=== PATIENT | female | born 1960 | race American Indian/Alaskan Native ===

== ENCOUNTER 2019-02-14 12:31 | Emergency (ER) | payer OTHER ==
[2019-02-14 12:40] VITALS: BP 161/75
--- NOTE | 2019-02-14 12:48 | Event Note ---
ED Screening Note Date of service: 02/14/19 Time: 12:44 ED Screening Note: This is a 58 y.o. F. that presents to the ER with left shoulder and elbow pain for 1 week. Patient reports tingling in feet started a few days ago. Taking ibuprofen with minimal relief. PMH hypothyroidism, OA, HTN, depression Denies chest pain, palpitations, or SOB This initial assessment/diagnostic orders/clinical plan/treatment(s) is/are subject to change based on patients health status, clinical progression and re- assessment by fellow clinical providers in the ED. Further treatment and workup at subsequent clinical providers discretion. Patient/guardian urged not to elope from the ED as their condition may be serious if not clinically assessed and managed. Initial orders include: XR left shoulder and elbow
--- NOTE | 2019-02-14 13:32 | XRay Report ---
LEFT SHOULDER 3 VIEW(S) INDICATION / CLINICAL INFORMATION: Left shoulder pain for 3 weeks COMPARISON: None available. FINDINGS: BONES / JOINT(S): No acute fracture or subluxation. Mild glenohumeral and acromioclavicular degenerat yuri arthrosis. SOFT TISSUES: No significant abnormality. ADDITIONAL FINDINGS: None. Signer Name: Zaira Vera MD Signed: 02/14/2019 1:28 PM Workstation Name: [id number]
--- NOTE | 2019-02-14 13:33 | XRay Report ---
LEFT ELBOW 4 VIEW(S) INDICATION / CLINICAL INFORMATION: Left elbow pain and swelling, lateral, for 3 weeks COMPARISON: None available. FINDINGS: BONES / JOINT(S): No acute fracture or subluxation. No significant arthritis. SOFT TISSUES: No significant abnormality. ADDITIONAL FINDINGS: None. Signer Name: Zaira Vera MD Signed: 02/14/2019 1:29 PM Workstation Name: [id number]
--- NOTE | 2019-02-14 13:44 | Emergency Department Report ---
ED Upper Extremity Inj HPI - General Chief Complaint: Extremity Problem,Nontraumatic Stated Complaint: L ELBOW/L FEET/BACK PAIN Time Seen by Provider: 02/14/19 12:44 Source: patient Mode of arrival: Ambulatory Limitations: No Limitations - History of Present Illness Initial Comments: Mrs. claros is a very pleasant female with history of hypothyroidism, arthritis, depression who presents with several weeks of left shoulder and left elbow neck pain. During physical activity, exercise, she felt a strain several weeks ago. With certain positions the pain is better. Certain position pain is worse. She tends to wake up in the morning with tingling in her hand mainly in her fourth and fifth fingers of the left hand. No direct trauma. She has history of the tingling which has been previously addressed by her PCP. She is visiting from [facility]. She plans to return home at the end of the month. Complaint: Injury to:: left, shoulder, arm -: Gradual, week(s) (3) Other Extremity Injury: Elbow: Left, Shoulder: Left Improves With: other (certain positions) Worsens With: other (certain positions) Context: other (physical exercise) Associated Symptoms: other (tingling in hand) - Related Data Previous Rx's Medication Instructions Recorded Last Taken Type Cyclobenzaprine [Flexeril] 10 mg PO TID PRN #20 tablet 02/14/19 Unknown Rx HYDROcodone/APAP 5-325 [[place] 1 each PO Q6HR PRN #10 tablet 02/14/19 Unknown Rx 5/325] Allergies Allergy/AdvReac Type Severity Reaction Status Date / Time Penicillins Allergy Unknown Verified 02/14/19 12:40 ED Review of Systems ROS: Stated complaint: L ELBOW/L FEET/BACK PAIN Other details as noted in HPI Comment: All other systems reviewed and negative Constitutional: denies: fever, malaise Respiratory: denies: cough, shortness of breath Cardiovascular: denies: chest pain Gastrointestinal: denies: abdominal pain ED Past Medical Hx - Past Medical History Previous Medical History?: No Hx Hypertension: Yes Additional medical history: hypothyroidism, arrthritis, depression - Surgical History Past Surgical History?: Yes Additional Surgical History: - Social History Smoking Status: Current Every Day Smoker - Medications Home Medications: Home Medications Medication Instructions Recorded Confirmed Last Taken Type Cyclobenzaprine [Flexeril] 10 mg PO TID PRN #20 tablet 02/14/19 Unknown Rx HYDROcodone/APAP 5-325 [[place] 1 each PO Q6HR PRN #10 tablet 02/14/19 Unknown Rx 5/325] ED Physical Exam - General Limitations: No Limitations General appearance: alert, in no apparent distress - Head Head exam: Present: atraumatic, normocephalic - Eye Eye exam: Present: normal appearance - ENT ENT exam: Present: mucous membranes moist - Neck Neck exam: Present: normal inspection, full ROM - Respiratory Respiratory exam: Present: normal lung sounds bilaterally. Absent: respiratory distress, wheezes, rales, rhonchi - Cardiovascular Cardiovascular Exam: Present: regular rate, normal rhythm. Absent: systolic murmur, diastolic murmur, rubs, gallop - GI/Abdominal GI/Abdominal exam: Present: soft, normal bowel sounds. Absent: distended, tenderness, guarding, rebound - Extremities Exam Extremities exam: Present: normal inspection - Expanded Upper Extremity Exam Left Shoulder Exam: Present: normal inspection, full ROM. Absent: tenderness, swelling Upper Arm exam: Present: normal inspection, full ROM. Absent: tenderness, swelling Elbow exam: Present: normal inspection, full ROM. Absent: tenderness, swelling, abrasion Forearm Wrist exam: Present: normal inspection, full ROM. Absent: tenderness, swelling, abrasion Hand Wrist exam: Present: normal inspection, full ROM. Absent: tenderness, swelling, abrasion Neuro motor exam: Present: wrist extension intact, thumb opposition intact Neurosensory exam: Present: radial nerve intact, ulnar nerve intact, median nerve intact - Back Exam Back exam: Present: normal inspection - Neurological Exam Neurological exam: Present: alert, oriented X3 - Psychiatric Psychiatric exam: Present: normal affect, normal mood - Skin Skin exam: Present: warm, dry, intact, normal color. Absent: rash ED Course Vital Signs 02/14/19 12:36 Temperature 97.9 F Pulse Rate 89 Respiratory 18 Rate Blood Pressure 161/75 [Right] O2 Sat by Pulse 100 Oximetry ED Medical Decision Making - Radiology Data Radiology results: report reviewed Left shoulder and left elbow radiographs no acute findings according to radiologist's report. - Medical Decision Making Cervical radiculopathy: Prescribed [place] flexeril referred to orthopedic surgeon. Recommended chiropractor therapy. Critical care attestation.: If time is entered above; I have spent that time in minutes in the direct care of this critically ill patient, excluding procedure time. ED Disposition Clinical Impression: Cervical radiculopathy Disposition: TO HOME OR SELFCARE Is pt being admited?: No Does the pt Need Aspirin: No Condition: Stable Instructions: Cervical Radiculopathy (ED) Prescriptions: Cyclobenzaprine [Flexeril] 10 mg PO TID PRN #20 tablet PRN Reason: Muscle Spasm HYDROcodone/APAP 5-325 [[place] 5/325] 1 each PO Q6HR PRN #10 tablet PRN Reason: Pain Referrals: KELLIE MARKS MD [Staff Physician] - 3-5 Days
== END 2019-02-14 14:08 | disposition home or self-care (01) ==
LOC: ED 12:31
DX: M54.12 Radiculopathy, cervical region (principal); M19.90 Unspecified osteoarthritis, unspecified site; F32.9 Major depressive disorder, single episode, unspecified; E03.9 Hypothyroidism, unspecified; I10 Essential (primary) hypertension; F17.200 Nicotine dependence, unspecified, uncomplicated; Z88.0 Allergy status to penicillin
CPT/HCPCS: 99283

== ENCOUNTER 2022-01-03 10:33 | Outpatient (CLI) | payer OTHER ==
--- NOTE | 2022-01-03 11:24 | XRay Report ---
Right shoulder 3 views INDICATION: Pain FINDINGS: Advanced degenerative change right glenohumeral joint and right AC joint with joint space n arrowing and prominent osteophytes there may be some calcification projecting along the biceps tendon tract which could represent some calcific tendinopathy however nonspecific Signer Name: Marshall Esquivel MD Signed: 01/03/2022 11:20 AM Workstation Name: [facility]
== END 2022-01-03 10:34 | disposition home or self-care (01) ==
LOC: XRAY 10:33
PROVIDERS: ATTEND Internal Medicine
DX: M19.011 Primary osteoarthritis, right shoulder (principal)